=== PATIENT | male | born 1960 | race Caucasian/White ===

== ENCOUNTER 2021-10-24 20:26 | Emergency (ER) | payer SELFPAY ==
[~2021-10-24] VITALS: Ht 177.8 cm; Wt 91.6 kg
[2021-10-24 20:30] VITALS: BP 133/75
== END 2021-10-24 23:14 | disposition home or self-care (01) ==
LOC: ER 20:26
DX: F10.129 Alcohol abuse with intoxication, unspecified (principal); Y90.9 Presence of alcohol in blood, level not specified; F17.210 Nicotine dependence, cigarettes, uncomplicated; V43.62XA Car passenger injured in collision with other type car in traffic accident, initial encounter; Y93.89 Activity, other specified; Y92.410 Unspecified street and highway as the place of occurrence of the external cause; Y99.8 Other external cause status